=== PATIENT | female | born 1970 | race Two or more races ===

== ENCOUNTER 2016-10-16 20:34 | Emergency (ER) | payer OTHER ==
[2016-10-16] MEDS ORDERED: ONDANSETRON 4 MG ODT TAB ONE (21:42)
[2016-10-16] MEDS ORDERED: HYDROCODONE/ACETAMINOPHEN 5/325MG TABLET ONE (21:42)
[2016-10-16] MEDS ORDERED: IBUPROFEN 800 MG TABLET ONE (21:42)
== END 2016-10-16 21:55 | disposition home or self-care (01) ==
LOC: ED 20:34
DX: S16.1XXA Strain of muscle, fascia and tendon at neck level, initial encounter (principal); E11.9 Type 2 diabetes mellitus without complications; Z79.84 Long term (current) use of oral hypoglycemic drugs; V89.2XXA Person injured in unspecified motor-vehicle accident, traffic, initial encounter; Y92.410 Unspecified street and highway as the place of occurrence of the external cause
CPT/HCPCS: A9270 ×3

== ENCOUNTER 2016-10-28 17:23 | Emergency (ER) | payer OTHER | END 2016-10-28 18:04 | disposition home or self-care (01) | LOC: ED 17:23 | DX: M54.12 Radiculopathy, cervical region (principal); E11.9 Type 2 diabetes mellitus without complications; Z79.84 Long term (current) use of oral hypoglycemic drugs ==